=== PATIENT | female | born 1980 | race Caucasian/White ===

== ENCOUNTER 2021-01-12 03:07 | Emergency (ER) | payer BC, OTHER ==
[2021-01-12 03:19] VITALS: TEMP 97.3
[2021-01-12 03:34] LABS: Appearance,Urine Cloudy (Clear); Bacteria,Urine Rare /hpf; Bilirubin,Urine Negative (Negative); Blood,Urine Large (Negative); Color,Urine Yellow; Glucose,Urine (UA) Negative (Negative); Ketones,Urine Negative (Negative); Leukocyte Esterase,Urine Large (Negative); Mucus,Urine Rare /hpf; Nitrite,Urine Negative (Negative); PH, Urine 6.5 (5.0-8.0); Protein,Urine 2+ (Negative); RBC,Urine >182 /hpf (0-5); Specific Gravity,Urine 1.005 (1.001-1.035); Urobilinogen,Urine <2.0 mg/dL (<2.0); WBC,Urine 165 /hpf (0-5)
[2021-01-12] MEDS ORDERED: PHENAZOPYRIDINE 100 MG TAB PO STA (03:52)
--- NOTE | 2021-01-12 03:56 | ED ---
Female Urogenital HPI - General Chief complaint: Urogenital Stated complaint: poss UTI Time Seen by Provider: 01/12/21 03:19 Source: patient Mode of arrival: ambulatory Limitations: no limitations - History of Present Illness Initial comments: Patient's 40-year-old woman who presents to be evaluated for frequency, urgency, and dysuria has been going on since she had gone to bed. The patient also has some suprapubic discomfort and a little bit of right flank discomfort. MD Complaint: dysuria Onset/Timin -: hour(s) Location: suprapubic Radiation: non-radiating Severity: moderate Quality: cramping, burning Consistency: intermittent Improves with: urination - Related Data Home Medications Medication Instructions Recorded Confirmed Atorvastatin [Lipitor] 20 mg PO DAILY 01/12/21 01/12/21 FLUoxetine HCL [PROzac] 20 mg PO DAILY 01/12/21 01/12/21 Hydroxychloroquine Sulfate 200 mg PO BID 01/12/21 01/12/21 [Plaquenil] Verapamil HCl [Verapamil ER] 180 mg PO DAILY 01/12/21 01/12/21 diazePAM [Valium] 5 mg PO BID 01/12/21 01/12/21 hydrOXYzine HCL [Atarax] 10 mg PO BID 01/12/21 01/12/21 Previous Rx's Medication Instructions Recorded Ciprofloxacin HCl [Cipro] 500 mg PO Q12HR 1 Days #10 tab 01/12/21 Phenazopyridine [Pyridium] 100 mg PO TID #6 tablet 01/12/21 Allergies Allergy/AdvReac Type Severity Reaction Status Date / Time Penicillins Allergy Unknown Verified 01/12/21 03:19 Childhood Review of Systems ROS Statement: Those systems with pertinent positive or pertinent negative responses have been documented in the HPI. ROS Other: All systems not noted in ROS Statement are negative. Constitutional: Denies: fever, chills Respiratory: Denies: cough, dyspnea Cardiovascular: Denies: chest pain, palpitations, edema Gastrointestinal: Reports: as per HPI, abdominal pain. Denies: nausea, vomiting, diarrhea, constipation, melena, hematochezia Genitourinary: Reports: urgency, dysuria, frequency, hematuria. Denies: discharge, abnormal menses Musculoskeletal: Denies: back pain Skin: Denies: rash Neurological: Denies: headache, weakness, numbness Past Medical History Past Medical History: Cancer Additional Past Medical History / Comment(s): lupus, colorectal cancer, parry syndrome History of Any Multi-Drug Resistant Organisms: None Reported Past Surgical History: Section, Hysterectomy Additional Past Surgical History / Comment(s): sigmoidoscopy Past Psychological History: Anxiety Smoking Status: Former smoker Past Alcohol Use History: None Reported Past Drug Use History: None Reported General Exam Limitations: no limitations General appearance: alert, in no apparent distress Head exam: Present: atraumatic, normocephalic Eye exam: Present: normal appearance. Absent: scleral icterus, conjunctival injection Neck exam: Present: normal inspection Respiratory exam: Present: normal lung sounds bilaterally. Absent: respiratory distress, wheezes, rales, rhonchi, stridor Cardiovascular Exam: Present: regular rate, normal rhythm, normal heart sounds. Absent: systolic murmur, diastolic murmur, rubs, gallop GI/Abdominal exam: Present: soft. Absent: distended, tenderness, guarding, rebound, rigid, mass Extremities exam: Present: normal inspection, normal capillary refill. Absent: pedal edema, calf tenderness Back exam: Present: normal inspection. Absent: CVA tenderness (R), CVA tenderness (L) Neurological exam: Present: alert Skin exam: Present: warm, dry, intact, normal color. Absent: rash Course Vital Signs 01/12/21 03:15 Temperature 97.3 F L Pulse Rate 92 Respiratory 18 Rate Blood Pressure 148/100 O2 Sat by Pulse 100 Oximetry Medical Decision Making - Lab Data Lab Results 01/12/21 Range/Units 03:22 Urine Color Yellow Urine Appearance Cloudy H (Clear) Urine pH 6.5 (5.0-8.0) Ur Specific [place] 1.005 (1.001-1.035) Urine Protein 2+ H (Negative) Urine Glucose (UA) Negative (Negative) Urine Ketones Negative (Negative) Urine Blood Large H (Negative) Urine Nitrite Negative (Negative) Urine Bilirubin Negative (Negative) Urine Urobilinogen <2.0 (<2.0) mg/dL Ur Leukocyte Esterase Large H (Negative) Urine RBC >182 H (0-5) /hpf Urine WBC 165 H (0-5) /hpf Urine Bacteria Rare H (None) /hpf Urine Mucus Rare H (None) /hpf Disposition Clinical Impression: Urinary tract infection, Hypertension Disposition: HOME SELF-CARE Condition: Good Instructions (If sedation given, give patient instructions): Urinary Tract Infection in Women (ED), Hypertension (ED) Prescriptions: Ciprofloxacin HCl [Cipro] 500 mg PO Q12HR 1 Days #10 tab Phenazopyridine [Pyridium] 100 mg PO TID #6 tablet Is patient prescribed a controlled substance at d/c from ED?: No Referrals: Masood Unger MD [Primary Care Provider] - 1-2 days
[2021-01-12] MEDS ORDERED: LEVOFLOXACIN 750 MG TAB PO STA (04:45)
--- NOTE | 2021-01-12 05:21 | CT ---
EXAM: CT Abdomen and Pelvis Without Intravenous Contrast CLINICAL HISTORY: ITS.REASON CT Reason: stone protocol TECHNIQUE: Axial computed tomography images of the abdomen and pelvis without intravenous contrast. CTDI is 15.77 mGy and DLP is 917.40 mGy-cm. This CT exam was performed using one or more of the following dose reduction techniques: automated exposure control, adjustment of the mA and/or kV according to patient size, and/or use of iterative reconstruction technique. COMPARISON: No previous studies. FINDINGS: Lung bases: Minimal subsegmental atelectasis posteriorly at the lung bases. Heart: Heart is normal in size. ABDOMEN: Liver: The liver and the spleen are normal in contour. Gallbladder and bile ducts: Status post cholecystectomy. No ductal dilation. Pancreas: See below. Spleen: See above. Adrenals: The adrenal glands, the head, body, tail of the pancreas are within normal limits. Kidneys and ureters: No renal calculus or hydronephrosis. Stomach and bowel: Small to moderate quantity of ingested material in the stomach. Moderate quantity of stool throughout the colon. No bowel obstruction. No mucosal thickening. PELVIS: Appendix: No findings to suggest acute appendicitis. Bladder: Wall thickening of the bladder. Inflammatory changes about the bladder. No stones. Reproductive: The patient is status post hysterectomy. ABDOMEN and PELVIS: Intraperitoneal space: Unremarkable. No free air. No significant fluid collection. Bones/joints: No spondylolysis or spondylolisthesis. No acute fracture. No dislocation. Soft tissues: 2 cm umbilical hernia containing mesenteric fat only. Ischiorectal fat is clean. Vasculature: Unremarkable. No abdominal aortic aneurysm. Lymph nodes: No pelvic or inguinal lymphadenopathy. IMPRESSION: 1. There is wall thickening of the bladder with associated inflammatory changes compatible with cystitis. 2. Status post cholecystectomy. 3. No renal calculus or hydronephrosis.
[2021-01-12 05:50] VITALS: BP 135/94; PULSE 79; RESP 16
== END 2021-01-12 05:51 | disposition home or self-care (01) ==
LOC: EC 03:07
DX: N39.0 Urinary tract infection, site not specified (principal); I10 Essential (primary) hypertension; F41.9 Anxiety disorder, unspecified; B96.20 Unspecified Escherichia coli [E. coli] as the cause of diseases classified elsewhere; Z87.891 Personal history of nicotine dependence; Z88.0 Allergy status to penicillin; Z79.899 Other long term (current) drug therapy
CPT/HCPCS: 74176; 81001; 81025; 87077; 87086; 87186; 99284

== ENCOUNTER → 2022-04-28 | Outpatient (CLI) | payer OTHER | END | disposition home or self-care (01) | LOC: LABWHC1 14:23 | PROVIDERS: ATTEND Allergy & Immunology | DX: K21.9 Gastro-esophageal reflux disease without esophagitis (principal); R19.7 Diarrhea, unspecified; R10.9 Unspecified abdominal pain | CPT/HCPCS: 36415; 82784; 83516 ==